=== PATIENT | male | born 1960 | race Two or more races ===

== ENCOUNTER → 2021-06-23 08:00 | Outpatient (CLI) | payer OTHER ==
[~2021-06-23 08:00] MED LIST: COZAAR25 MG PO; LEVOTHYROXINE25 MCG PO
== END | disposition home or self-care (01) ==
LOC: LAB 08:00 → CIR.AMB 06-27 07:00 → EDSTATUS 06-27 07:00 → CIR.AMB 06-27 14:43
PROVIDERS: ATTEND Orthopaedic Surgery
DX: M23.232 Derangement of other medial meniscus due to old tear or injury, left knee (principal); Z20.822 Contact with and (suspected) exposure to COVID-19

== ENCOUNTER 2021-06-23 09:47 | Outpatient (CLI) | payer OTHER ==
[2021-06-23] MEDS ORDERED: COZAAR25 MG PO (12:59)
[2021-06-23] MEDS ORDERED: LEVOTHYROXINE25 MCG PO (12:59)
== END 2021-06-23 09:49 | disposition home or self-care (01) ==
LOC: LAB 09:47
PROVIDERS: ATTEND Orthopaedic Surgery
DX: D64.9 Anemia, unspecified (principal); D68.8 Other specified coagulation defects; N39.0 Urinary tract infection, site not specified; E11.65 Type 2 diabetes mellitus with hyperglycemia; E03.9 Hypothyroidism, unspecified; E88.9 Metabolic disorder, unspecified; A49.02 Methicillin resistant Staphylococcus aureus infection, unspecified site; Z76.89 Persons encountering health services in other specified circumstances